=== PATIENT | female | born 1970 | race Caucasian/White ===

== ENCOUNTER 2021-04-08 08:26 | Emergency (ER) | payer OTHER ==
[~2021-04-08 08:26] MED LIST: ESTROGEN PO; HYDROCODON-ACE1 EAC4 PO; IBUPROFEN800 MG PO; LEVAQUIN750 MG PO; MEDROL 4MG DOSEP4 MG PO; PERCOCET 5-3251 EACH PO; PRINIVIL20 MG PO; XANAX0.5 MG PO
[2021-04-08] MEDS ORDERED: FLEXERIL5 MG PO (12:20)
[2021-04-08] MEDS ORDERED: ZOFRAN4 M1 PO (12:20)
== END 2021-04-08 12:35 | disposition home or self-care (01) ==
LOC: FER 08:26
DX: S06.0X0A Concussion without loss of consciousness, initial encounter (principal); M54.2 Cervicalgia; I10 Essential (primary) hypertension; V49.40XA Driver injured in collision with unspecified motor vehicles in traffic accident, initial encounter
CPT/HCPCS: 70450; 72125